=== PATIENT | male | born 1995 | race Caucasian/White ===

== ENCOUNTER → 2017-07-09 | Outpatient (CLI) | payer MEDICAID ==
[2017-07-09 11:47] LABS: ALT 41 U/L (21-72); AST 29 U/L (17-59); Albumin 4.5 g/dL (3.5-5.0); Alkaline Phosphatase 55 U/L (38-126); Anion Gap 11 mmol/L; Blood Urea Nitrogen 24 mg/dL (9-20); Calcium 10.1 mg/dL (8.4-10.2); Carbon Dioxide 28 mmol/L (22-30); Chloride 104 mmol/L (98-107); Cholesterol 167 mg/dL (<200); Glucose 89 mg/dL (74-99); HDL Cholesterol 57 mg/dL (40-60); LDL Cholesterol,Calculated 87 mg/dL (0-99); Potassium 4.3 mmol/L (3.5-5.1); Sodium 143 mmol/L (137-145); Total Bilirubin 0.7 mg/dL (0.2-1.3); Total Protein 7.4 g/dL (6.3-8.2); Triglycerides 115 mg/dL (<150)
[2017-07-09 12:01] LABS: Basophils % (A) 0 %; Eosinophils # (A) 0.1 k/uL (0-0.7); Eosinophils % (A) 1 %; HCT 50.4 % (39.0-53.0); HGB 16.9 gm/dL (13.0-17.5); Lymphocytes # (A) 1.7 k/uL (1.0-4.8); Lymphocytes % (A) 30 %; MCHC 33.4 g/dL (31.0-37.0); MCV 95.8 fL (80.0-100.0); Mean Platelet Volume 7.7; Monocytes # (A) 0.4 k/uL (0-1.0); Monocytes % (A) 7 %; Neutrophils # (A) 3.4 k/uL (1.3-7.7); Neutrophils % (A) 60 %; Platelet Count 191 k/uL (150-450); RBC 5.26 m/uL (4.30-5.90); RDW 12.1 % (11.5-15.5); WBC 5.7 k/uL (4.0-11.0)
== END | disposition home or self-care (01) ==
LOC: LABWHC1 10:57
PROVIDERS: ATTEND Pediatrics
DX: Z00.00 Encounter for general adult medical examination without abnormal findings (principal); Z13.220 Encounter for screening for lipoid disorders
CPT/HCPCS: 36415; 80053; 80061; 85025

== ENCOUNTER → 2019-07-08 | Outpatient (CLI) | payer MEDICAID ==
[2019-07-08 16:18] LABS: Basophils % (A) 1 %; Eosinophils # (A) 0.1 k/uL (0-0.7); Eosinophils % (A) 2 %; HCT 49.5 % (39.0-53.0); Lymphocytes % (A) 40 %; MCH 31.4 pg (25.0-35.0); MCHC 32.2 g/dL (31.0-37.0); MCV 97.5 fL (80.0-100.0); Mean Platelet Volume 7.8; Monocytes # (A) 0.3 k/uL (0-1.0); Monocytes % (A) 6 %; Neutrophils # (A) 2.5 k/uL (1.3-7.7); Neutrophils % (A) 50 %; Platelet Count 209 k/uL (150-450); RBC 5.08 m/uL (4.30-5.90); RDW 12.3 % (11.5-15.5); WBC 5.1 k/uL (3.8-10.6)
[2019-07-09 00:34] LABS: African American GFR (CKD) 123.3 (60.0-200.0); Albumin 4.7 g/dL (3.80-4.90); Albumin/Globulin Ratio 2.04 (1.60-3.17); Anion Gap 7.2 mmol/L (4.00-12.00); Calcium 9.8 mg/dL (8.7-10.3); Carbon Dioxide 28.8 mmol/L (21.6-31.8); Chol/HDL Ratio 3.67; Globulin 2.3 g/dL (1.6-3.3); LDL Cholesterol,Calculated 106.4 mg/dL (0.0-131.0); Non-African American GFR(CKD) 106.4 (60.0-200.0); Potassium 4.7 mmol/L (3.5-5.5); Total Bilirubin 0.8 mg/dL (0.3-1.2); VLDL Calculation 24.6 mg/dL (5.00-40.00)
== END | disposition home or self-care (01) ==
LOC: LABWHC1 15:23
PROVIDERS: ATTEND Pediatrics
DX: Z00.00 Encounter for general adult medical examination without abnormal findings (principal); Z13.220 Encounter for screening for lipoid disorders
CPT/HCPCS: 36415; 80053; 80061; 85025

== ENCOUNTER 2020-08-11 17:21 | Emergency (ER) | payer MEDICAID ==
--- NOTE | 2020-08-11 18:17 | ED ---
General Adult HPI - General Chief complaint: Psychiatric Symptoms Stated complaint: EPS eval Time Seen by Provider: 08/11/20 17:49 Source: patient Mode of arrival: ambulatory Limitations: no limitations - History of Present Illness Initial comments: Dictation was produced using [employer] dictation software. please excuse any grammatical, word or spelling errors. This patient was cared for during a federal and state declared state of emergency secondary to Covid 19 Chief Complaint: 25-year-old male past medical history of bipolar depression presents to the emergency department for suicidal behavior and thoughts History of Present Illness: Patient 25-year-old male who states he was diagnosed with bipolar depression several years ago. He states that over the last year he has been feeling suicidal. Patient has seen a psychiatrist in the past. Patient states that he wants to harm himself he doesn't have a specific plan. He has been cutting his left upper extremity. He presents to the emergency department voluntarily seeking help. He presents with his mother was at the bedside. Patient has no medical complaints. Patient has no medical complaints. Patient states his tetanus is up-to-date. The ROS documented in this emergency department record has been reviewed and confirmed by me. Those systems with pertinent positive or negative responses have been documented in the HPI. All other systems are other negative and/or noncontributory. PHYSICAL EXAM: General Impression: Alert and oriented x3, not in acute distress HEENT: Normocephalic atraumatic, extra-ocular movements intact, pupils equal and reactive to light bilaterally, mucous membranes moist. Cardiovascular: Heart regular rate and rhythm Chest: Able to complete full sentences, no retractions, no tachypnea Abdomen: abdomen soft, non-tender, non-distended, no organomegaly Musculoskeletal: Pulses present and equal in all extremities, no peripheral ed juan carlos Motor: no focal deficits noted Neurological: CN II-XII grossly intact, no focal motor or sensory deficits noted Skin: Multiple superficial abrasions to the right dorsum of the hand Psych: Normal affect and mood ED course: 25-year-old male presents with suicidal behavior and ideation. Vital signs upon arrival are within acceptable limits. medically cleared for EPS evaluation. Patient evaluated by EPS and given outpatient resources. Patient is agreeable plan patient will be discharged. - Related Data Home Medications Medication Instructions Recorded Confirmed FLUoxetine HCL [PROzac] 40 mg PO DAILY 08/11/20 08/11/20 OLANZapine [ZyPREXA] 7.5 mg PO HS 08/11/20 08/11/20 Pramipexole [Mirapex] 0.5 mg PO HS 08/11/20 08/11/20 Allergies Allergy/AdvReac Type Severity Reaction Status Date / Time No Known Allergies Allergy Verified 08/11/20 17:27 Review of Systems ROS Statement: Those systems with pertinent positive or pertinent negative responses have been documented in the HPI. ROS Other: All systems not noted in ROS Statement are negative. Past Medical History Past Medical History: No Reported History History of Any Multi-Drug Resistant Organisms: None Reported Past Surgical History: No Surgical Hx Reported Past Psychological History: Bipolar, Depression Smoking Status: Never smoker Past Alcohol Use History: Occasional Past Drug Use History: None Reported General Exam Limitations: no limitations Course Vital Signs 08/11/20 17:24 Temperature 97.9 F Pulse Rate 71 Respiratory 18 Rate Blood Pressure 126/78 O2 Sat by Pulse 98 Oximetry Disposition Clinical Impression: Suicidal ideation Disposition: HOME SELF-CARE Condition: Fair Instructions (If sedation given, give patient instructions): Help Prevent Suicide (ED) Is patient prescribed a controlled substance at d/c from ED?: No Referrals: Jean Claude Vo MD [Primary Care Provider] - 1-2 days Time of Disposition: 19:10
[2020-08-11 19:24] VITALS: BP 121/65; PULSE 65; RESP 20; TEMP 98.1
== END 2020-08-11 19:23 | disposition home or self-care (01) ==
LOC: EC 17:21
DX: R45.851 Suicidal ideations (principal); F31.9 Bipolar disorder, unspecified; Z79.899 Other long term (current) drug therapy
CPT/HCPCS: 82075; 99285

== ENCOUNTER 2023-11-26 20:05 | Inpatient (IN) | payer OTHER, MEDICAID ==
[2023-11-26 21:14] LABS: Amphetamine Screen,Urine Not Detected (NotDetected); Barbiturate Screen,Urine Not Detected (NotDetected); Benzodiazepines Screen,Urine Not Detected (NotDetected); Cocaine Screen,Urine Not Detected (NotDetected); Methadone Screen, Urine Not Detected (NotDetected); Opiate Screen,Urine Not Detected (NotDetected); Oxycodone Screen, Urine Not Detected (NotDetected); Phencyclidine Screen,Urine Not Detected (NotDetected); Tricyclic Antidepressant,Urine Not Detected (NotDetected); Urn Cannabinoid Scrn Not Detected (NotDetected)
--- NOTE | 2023-11-26 21:41 | ED ---
Psych HPI - General Chief Complaint: Psychiatric Symptoms Stated Complaint: mental health, L arm injury Time Seen by Provider: 11/26/23 20:12 Source: patient, RN notes reviewed Mode of arrival: ambulatory Limitations: no limitations - History of Present Illness Initial Comments: 28 year old male presents emerged part for complaints of depression, states ideation. He states he has been cutting his arm, burning his left arm. His tetanus is up-to-date. Patient does see a current counselor. Patient is here for psychiatric evaluation. - Related Data Home Medications Medication Instructions Recorded Confirmed FLUoxetine HCL [PROzac] 40 mg PO DAILY 08/11/20 08/11/20 OLANZapine [ZyPREXA] 7.5 mg PO HS 08/11/20 08/11/20 Pramipexole [Mirapex] 0.5 mg PO HS 08/11/20 08/11/20 Allergies Allergy/AdvReac Type Severity Reaction Status Date / Time No Known Allergies Allergy Verified 11/26/23 20:14 Review of Systems ROS Statement: Those systems with pertinent positive or pertinent negative responses have been documented in the HPI. ROS Other: All systems not noted in ROS Statement are negative. Past Medical History Past Medical History: No Reported History History of Any Multi-Drug Resistant Organisms: None Reported Past Surgical History: No Surgical Hx Reported Past Psychological History: Bipolar, Depression Smoking Status: Never smoker Past Alcohol Use History: Occasional Past Drug Use History: None Reported General Exam Limitations: no limitations General appearance: alert, in no apparent distress Head exam: Present: atraumatic, normocephalic, normal inspection Neck exam: Present: normal inspection, full ROM. Absent: tenderness, meningismus, lymphadenopathy Respiratory exam: Present: normal lung sounds bilaterally. Absent: respiratory distress, wheezes, rales, rhonchi, stridor Cardiovascular Exam: Present: regular rate, normal rhythm, normal heart sounds. Absent: systolic murmur, diastolic murmur, rubs, gallop, clicks Extremities exam: Present: other (Multiple circular wiggins left arm with abrasions noted) Psychiatric exam: Present: depressed Course Vital Signs 11/26/23 20:09 Temperature 98.2 F Pulse Rate 68 Respiratory 18 Rate Blood Pressure 157/85 O2 Sat by Pulse 99 Oximetry Medical Decision Making - Medical Decision Making Was pt. sent in by a medical professional or institution (, PA, TRAVEL ADMINISTRATOR, urgent care, hospital, or penitentiary...) When possible be specific @ -No Did you speak to anyone other than the patient for history (EMS, parent, family, police, friend...)? What history was obtained from this source @ -No Did you review nursing and triage notes (agree or disagree)? Why? @ -I reviewed and agree with nursing and triage notes Were old charts reviewed (outside hosp., previous admission, EMS record, old EKG, old radiological studies, urgent care reports/EKG's, penitentiary records)? Report findings @ -No old charts were reviewed Differential Diagnosis (chest pain, altered mental status, abdominal pain women, abdominal pain men, vaginal bleeding, weakness, fever, dyspnea, syncope, headache, dizziness, GI bleed, back pain, seizure, CVA, palpatations, mental health, musculoskeletal)? @ -Differential Mental Health Depression, anxiety, bipolar, psychosis, schizophrenia, borderline personality, situational depression, adjustment disorder, behavioral disorder, brain tumor, malingering, substance abuse, encephalopathy, medication reaction, dementia, hypothyroidism, degenerative neurologic disorder, lupus.... This is not meant to be all-inclusive list EKG interpreted by me (3pts min.). @ -None X-rays interpreted by me (1pt min.). @ -None done CT interpreted by me (1pt min.). @ -None done U/S interpreted by me (1pt. min.). @ -None done What testing was considered but not performed or refused? (CT, X-rays, U/S, labs)? Why? @ -None What meds were considered but not given or refused? Why? @ -None Did you discuss the management of the patient with other professionals (professionals i.e. , PA, TRAVEL ADMINISTRATOR, lab, RT, psych nurse, social sciences department chair, mitigation supervisor, teacher, information technology officer, comp field case manager)? Give summary @ -EPS evaluated patient recommend inpatient treatment Was smoking cessation discussed for >3mins.? @ -No Was critical care preformed (if so, how long)? @ -No Were there social determinants of health that impacted care today? How? (Homelessness, low income, unemployed, alcoholism, drug addiction, transportation, low edu. Level, literacy, decrease access to med. care, assisted, rehab)? @ -No Was there de-escalation of care discussed even if they declined (Discuss DNR or withdrawal of care, Hospice)? DNR status @ -No What co-morbidities impacted this encounter? (DM, HTN, Smoking, COPD, CAD, Cancer, CVA, ARF, Chemo, Hep., AIDS, mental health diagnosis, sleep apnea, morbid obesity)? @ -None Was patient admitted / discharged? Hospital course, mention meds given and route, prescriptions, significant lab abnormalities, going to OR and other pertinent info. @ -Admitted to 3 W. Undiagnosed new problem with uncertain prognosis? @ -No Drug Therapy requiring intensive monitoring for toxicity (Heparin, Nitro, Insulin, Cardizem)? @ -No Were any procedures done? @ -No Diagnosis/symptom? @ -Depression, suicide lesion, left arm wiggins Acute, or Chronic, or Acute on Chronic? @Acute Uncomplicated (without systemic symptoms) or Complicated (systemic symptoms)? @ -Complicated Side effects of treatment? @ -No Exacerbation, Progression, or Severe Exacerbation? @ -No Poses a threat to life or bodily function? How? (Chest pain, USA, LA, pneumonia, PE, COPD, DKA, ARF, appy, cholecystitis, CVA, Diverticulitis, Homicidal, Suicidal, threat to staff... and all critical care pts) @ -Yes suicidal - Lab Data Lab Results 11/26/23 Range/Units 20:50 Urine Opiates Screen Not Detected (NotDetected) Ur Oxycodone Screen Not Detected (NotDetected) Urine Methadone Screen Not Detected (NotDetected) Ur Barbiturates Screen Not Detected (NotDetected) U Tricyclic Antidepress Not Detected (NotDetected) Ur Phencyclidine Scrn Not Detected (NotDetected) Ur Amphetamines Screen Not Detected (NotDetected) U Methamphetamines Scrn Not Detected (NotDetected) U Benzodiazepines Scrn Not Detected (NotDetected) Urine Cocaine Screen Not Detected (NotDetected) U Marijuana (THC) Screen Not Detected (NotDetected) Disposition Clinical Impression: Suicidal ideation, Depression, Burn of left arm Disposition: TRANSFER TO PSYCH HOSP/UNIT Referrals: Jean Claude Vo MD [Primary Care Provider] - 1-2 days Time of Disposition: 21:41
[2023-11-26] MEDS ORDERED: haloperidoL 5 MG TAB PO PRN (22:49)
[2023-11-26] MEDS ORDERED: LORazepam 2 MG/ML INJ IM PRN (22:49)
[2023-11-26] MEDS ORDERED: HALOPERIDOL LACTATE 5 MG/ML 1 ML VIAL IM PRN (22:49)
[2023-11-26] MEDS ORDERED: MAG HYDROX/AL HYDROX/SIMETH 355 ML BOTTLE PO PRN (22:49)
[2023-11-26] MEDS ORDERED: LORazepam 1 MG TAB PO PRN (22:49)
[2023-11-26] MEDS ORDERED: MAGNESIUM HYDROXIDE 2,400 MG/30 ML CUP PO PRN (22:49)
[2023-11-26] MEDS ORDERED: ACETAMINOPHEN TAB 325 MG TAB PO PRN (22:49)
[2023-11-27] MEDS: traZODone HCL 50 MG TAB PO PRN (02:49)
[2023-11-27 08:01] LABS: Basophils % (A) 1 %; Eosinophils # (A) 0.1 k/uL (0-0.7); Eosinophils % (A) 1 %; HCT 48.1 % (39.0-53.0); Lymphocytes # (A) 1.9 k/uL (1.0-4.8); Lymphocytes % (A) 36 %; MCH 33.1 pg (25.0-35.0); MCHC 33.3 g/dL (31.0-37.0); MCV 99.3 fL (80.0-100.0); Mean Platelet Volume 7.6; Monocytes # (A) 0.3 k/uL (0-1.0); Monocytes % (A) 6 %; Neutrophils # (A) 2.8 k/uL (1.3-7.7); Neutrophils % (A) 55 %; Platelet Count 222 k/uL (150-450); RBC 4.84 m/uL (4.30-5.90); RDW 12.2 % (11.5-15.5); WBC 5.2 k/uL (3.8-10.6)
[2023-11-27 08:32] LABS: ALT 36 U/L (4-49); AST 39 U/L (17-59); African American GFR (CKD) >90 (>60 ml/min/1.73 sqM); Albumin 4.6 g/dL (3.5-5.0); Alkaline Phosphatase 51 U/L (38-126); Anion Gap 7 mmol/L; Blood Urea Nitrogen 22 mg/dL (9-20); Calcium 9.8 mg/dL (8.4-10.2); Carbon Dioxide 25 mmol/L (22-30); Chloride 109 mmol/L (98-107); Glucose 89 mg/dL (74-99); Non-African American GFR(CKD) >90 (>60 ml/min/1.73 sqM); Potassium 4.2 mmol/L (3.5-5.1); Sodium 141 mmol/L (137-145); Total Bilirubin 0.8 mg/dL (0.2-1.3); Total Protein 7.2 g/dL (6.3-8.2)
[2023-11-27 09:54] LABS: Appearance,Urine Clear (Clear); Bilirubin,Urine Negative (Negative); Blood,Urine Negative (Negative); Color,Urine Yellow; Glucose,Urine (UA) Negative (Negative); Ketones,Urine Negative (Negative); Leukocyte Esterase,Urine Negative (Negative); Nitrite,Urine Negative (Negative); Protein,Urine Trace (Negative); Specific Gravity,Urine 1.034 (1.001-1.035); Urobilinogen,Urine <2.0 mg/dL (<2.0)
--- NOTE | 2023-11-27 12:19 | P.HP ---
Psychiatric H&P - . H&P Date: 11/27/23 History & Physical: Allergies Allergy/AdvReac Type Severity Reaction Status Date / Time No Known Allergies Allergy Verified 11/26/23 20:14 Vital Signs Temp 97.6 F 11/27/23 06:13 Pulse 80 11/27/23 06:13 Resp 18 11/27/23 06:13 BP 106/58 11/27/23 06:13 Pulse Ox 98 11/27/23 06:13 FiO2 Intake & Output 11/26/23 11/27/23 11/27/23 18:59 06:59 18:59 Weight 90.2 kg Laboratory Last Values WBC 5.2 k/uL (3.8-10.6) 11/27/23 07:28 RBC 4.84 m/uL (4.30-5.90) 11/27/23 07:28 Hgb 16.0 gm/dL (13.0-17.5) 11/27/23 07:28 Hct 48.1 % (39.0-53.0) 11/27/23 07:28 MCV 99.3 fL (80.0-100.0) 11/27/23 07:28 MCH 33.1 pg (25.0-35.0) 11/27/23 07:28 MCHC 33.3 g/dL (31.0-37.0) 11/27/23 07:28 RDW 12.2 % (11.5-15.5) 11/27/23 07:28 Plt Count 222 k/uL (150-450) 11/27/23 07:28 MPV 7.6 11/27/23 07:28 Neutrophils % 55 % 11/27/23 07:28 Lymphocytes % 36 % 11/27/23 07:28 Monocytes % 6 % 11/27/23 07:28 Eosinophils % 1 % 11/27/23 07:28 Basophils % 1 % 11/27/23 07:28 Neutrophils # 2.8 k/uL (1.3-7.7) 11/27/23 07:28 Lymphocytes # 1.9 k/uL (1.0-4.8) 11/27/23 07:28 Monocytes # 0.3 k/uL (0-1.0) 11/27/23 07:28 Eosinophils # 0.1 k/uL (0-0.7) 11/27/23 07:28 Basophils # 0.0 k/uL (0-0.2) 11/27/23 07:28 Sodium 141 mmol/L (137-145) 11/27/23 07:28 Potassium 4.2 mmol/L (3.5-5.1) 11/27/23 07:28 Chloride 109 mmol/L (98-107) H 11/27/23 07:28 Carbon Dioxide 25 mmol/L (22-30) 11/27/23 07:28 Anion Gap 7 mmol/L 11/27/23 07:28 BUN 22 mg/dL (9-20) H 11/27/23 07:28 Creatinine 0.83 mg/dL (0.66-1.25) 11/27/23 07:28 Est GFR (CKD-EPI)AfAm >90 (>60 ml/min/1.73 sqM) 11/27/23 07:28 Est GFR (CKD-EPI)NonAf >90 (>60 ml/min/1.73 sqM) 11/27/23 07:28 Glucose 89 mg/dL (74-99) 11/27/23 07:28 Calcium 9.8 mg/dL (8.4-10.2) 11/27/23 07:28 Total Bilirubin 0.8 mg/dL (0.2-1.3) 11/27/23 07:28 AST 39 U/L (17-59) 11/27/23 07:28 ALT 36 U/L (4-49) 11/27/23 07:28 Alkaline Phosphatase 51 U/L (38-126) 11/27/23 07:28 Total Protein 7.2 g/dL (6.3-8.2) 11/27/23 07:28 Albumin 4.6 g/dL (3.5-5.0) 11/27/23 07:28 Urine Opiates Screen Not Detected (NotDetected) 11/26/23 20:50 Ur Oxycodone Screen Not Detected (NotDetected) 11/26/23 20:50 Urine Methadone Screen Not Detected (NotDetected) 11/26/23 20:50 Ur Barbiturates Screen Not Detected (NotDetected) 11/26/23 20:50 U Tricyclic Antidepress Not Detected (NotDetected) 11/26/23 20:50 Ur Phencyclidine Scrn Not Detected (NotDetected) 11/26/23 20:50 Ur Amphetamines Screen Not Detected (NotDetected) 11/26/23 20:50 U Methamphetamines Scrn Not Detected (NotDetected) 11/26/23 20:50 U Benzodiazepines Scrn Not Detected (NotDetected) 11/26/23 20:50 Urine Cocaine Screen Not Detected (NotDetected) 11/26/23 20:50 U Marijuana (THC) Screen Not Detected (NotDetected) 11/26/23 20:50 SARS-CoV-2 (PCR) Not Detected (Not Detectd) 11/26/23 21:45 11/27/23 09:01 IDENTIFYING DATA: Patient is a 28-year-old male, lives with parents in a house. Single, no children. 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 HPI: Patient presented to the hospital on 11/25. As per EPS note, "Pt brought self to ER d/t self harming behaviors and a fear he would continue to harm or kill himself. In triage he told the RN that he was having SI with a plan to shoot self. He stated that he has access to guns/weapons. He is currently living with his parents who are out of town. He came to the ER with his friend. Pt does have wiggins on his left forearm. Micheal Raman accessed and stated Silvadene can be ordered but otherwise no other care. Pt stated that he used matches and a muskrat trapper to burn himself. He also stated that he had a dull blade and attempted to cut himself. Superficial Scratches seen on left forearm. Pt is guarded, flat, vague, and seems to minimize. Pt is conflicted with his feelings. Pt could not express any real triggers to his increased depression. He states that he has been struggling with SI for a few years on and off. When discussing being suicide he couldn't give a solid answer. He did not disclose to RN at first what he told triage. He denies HI, hallucinations. He expresses some paranoia and believes that people are always talking about him or against him. Pt did state that he has been off his medication for a few months, he believes that when he was on Paxil and Topamax it was making him "crazy" and wanted to harm himself more. Pt is not goal or future oriented. Pt exhibits risky,impulsive behaviors. Pt denies the use of substances. He admits to social ETOH use." Upon todays interview, he states that yesterday was just a really bad day. He states that he realizes he has mood swings, and some sort of emotional disorder. He claims that there was no clear trigger, it was just an accumulation of all the small things building up. Stressors include, work related stress, and friendship problems. He reports severe mood swings. He is endorsing anxiety. He reports self harm. He states that he told the first nurse he spoke with yesterday that the thought of shooting himself crossed his mind, however, he does not have access to the guns in his home. He states his sleep is good, and his appetite is good. He states he stopped taking his medications a couple months ago, due to him thinking they were making him feel worse. He is resistive to treatment, minimizing his need for mental health treatment and medications. he is denying any hx of manic episodes. Patient denies any suicidal or homicidal ideations intent or plan. At this time patient denies any auditory or visual hallucinations. Patient denies any flight of ideas racing thoughts and increased in goal directed behavior. Patient UDS was negative. Patient states he is a social drinker. patient was fairly focused on discharge and not taking medications, has fairly poor insight and judgment. PAST PSYCHIATRIC HISTORY: Patient states that he does outpatient therapy through [facility]. He denies any previous hospitalizations for psychiatric treatment. He claims to have been diagnosed with depression. He has been off Prozac and Topamax for about 2 months. Patient denies any history of suicide attempts in the past. PMH:As per ER note ALLERGIES: as per EMR CHEMICAL DEPENDENCY HISTORY: as per HPI FAMILY PSYCHIATRIC/SUBSTANCE USE HISTORY: dad/depression SOCIAL HISTORY: Patient was born and raised in [place], [place]. He is single, no children. Lives with his parents. High school graduate, has gone to some college. Works as a [employer] tech. Denies legal issues. MENTAL STATUS EXAM: General Appearance: Patient appears to be stated age is alert, directable, and attempts to cooperate. Patient appears to have fair hygiene and grooming. Average build, wearing glasses. Has a lucero. Dressed casually. Behavior: Patient is seated without any agitated behavior. Resistive to treatment. Speech: Patient's speech is fluent and nonpressured. Mood/Affect: Patient reports their mood is up and down, and anxious, affect is congruent and constricted. Suicidality/Homicidality: Patient denies having any homicidal ideation intent or plan. Denies any suicidal ideations intent or plan Perceptions: Patient denies any visual hallucinations and denies any auditory hallucinations Though content/process: There is no evidence of any delusional thought content and thought process is linear, minimizing need for treatment. Memory and concentration: AOX3, grossly intact for the purposes of this session. Can spell "WORLD" backwards Judgment and insight: Poor STRENGTHS/WEAKNESSES: strength is that patient is resilient. Weakness is that patient has poor judgment and is impulsive INTELLECT: Average IMPRESSIONS: major depressive disorder, without psychotic features PLAN: -Patient is admitted under voluntary status to [facility]HU for stabilization of psychiatric symptoms and safety. Patient has signed adult voluntary form but not a medication consent and is placed in patient's chart. Patient stated he was going to sign an AMA, because he does not think he needs treatment. -Medications : Will start patient on Zoloft 50mg daily for mood/anxiety, Abilify 2.5mg daily for mood stabilization. trazodone 50 mg qhs prn for sleep -Ativan and Haldol PRN for agitation/aggression -Patient was informed of the risks, benefits and side effects of the medication and patient refused to taking the medications. did not sign med consent form. -Internal Medicine consult to perform medical evaluation and physical. -NRT -non smoker -SW on board for discharge planning. Encourage patient to participate in groups to work on coping skills. 11/27/23 11:55 11/27/23 12:18
[2023-11-27 15:49] LABS: Chol/HDL Ratio 3.43 Ratio; LDL Cholesterol,Calculated 96.8 mg/dL (0.0-131.0)
--- NOTE | 2023-11-27 19:18 | P.CONS ---
History of Present Illness - Reason for Consult Consult date: 11/27/23 Medical management Requesting physician: Wolf Baptiste - Chief Complaint Depressed - History of Present Illness This is a 28-year-old patient who follows with Dr. Ammon Vo. Has a history of depression but not taking his medications. Patient presented to the ER. He did use a shaker screen operator to burn on his left arm. Has been feeling rather low and depressed. Some decreased appetite. He lives with his parents. No or girlfriend currently. Is gainfully employed. Just feels Anthony the low. Was having suicidal ideations. Silvadene cream was placed in the ER. Review of systems: GEN.: Tired EYES: None HEENT: None NECK: None RESPIRATORY: None CARDIOVASCULAR: None GASTROINTESTINAL: None GENITOURINARY: None MUSCULOSKELETAL: None LYMPHATICS: None HEMATOLOGICAL: None PSYCHIATRY: [Depression NEUROLOGICAL: Some altered sleep Social history: Lives with his parents. Denies use of recreational drugs. Alcohol socially. 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 Conjunctiva shauna l. HEENT: External appearance of nose and ears normal, oral cavity grossly normal. NECK: JVD not raised; masses not palpable. HEART: First and second heart sounds are normal; no edema. LUNGS: Respiratory rate normal; clear to auscultation. ABDOMEN: Soft, nontender, liver spleen not palpable, no masses palpable. PSYCH: Alert and oriented x3; mood and affect a bit low l. MUSCULOSKELETAL:No Clubbing/cyanosis;muscles-grossly intact NEUROLOGICAL: Cranial nerves grossly intact; no facial asymmetry, power and sensation grossly intact. LYMPHATICS: No lymph nodes palpable in the axilla and neck EXTREMITY: Left forearm in a dressing INVESTIGATIONS, reviewed in the clinical context: November 27, 2023: White count 5.2 hemoglobin 16 platelets 222 potassium 4.2 creatinine 0.83 LDL 96.8 TSH 3.2 Urine drug screen: Negative Assessment and plan: -Left forearm self-inflicted burn. Silvadene was applied in the ER. Dressing in place. ID consulted. -Insomnia from underlying depression -Major depressive disorder without psychotic features Medications per psychiatry Care was discussed with patient. Patient counseled at length. About lifestyle changes. Thank you Past Medical History Past Medical History: No Reported History History of Any Multi-Drug Resistant Organisms: None Reported Past Surgical History: No Surgical Hx Reported Smoking Status: Never smoker - Past Family History Father Additional Family Medical History / Comment(s): Pt reports father dx of depr ession Medications and Allergies Home Medications Medication Instructions Recorded Confirmed Type FLUoxetine HCL [PROzac] 40 mg PO DAILY 08/11/20 11/27/23 History OLANZapine [ZyPREXA] 7.5 mg PO HS 08/11/20 11/27/23 History Pramipexole [Mirapex] 0.5 mg PO HS 08/11/20 11/27/23 History Allergies Allergy/AdvReac Type Severity Reaction Status Date / Time No Known Allergies Allergy Verified 11/26/23 20:14 Physical Exam Vitals: Vital Signs Temp Pulse Pulse Resp BP BP Pulse Ox 11/27/23 06:13 97.6 F 80 18 106/58 98 11/26/23 22:55 97.2 F L 64 18 139/77 99 11/26/23 22:49 71 18 148/76 98 11/26/23 20:09 98.2 F 68 18 157/85 99 Results CBC & Chem 7: 11/27/23 07:28 11/27/23 07:28 Labs: Abnormal Lab Results - Last 24 Hours (Table) 11/26/23 11/27/23 Range/Units 20:50 07:28 Chloride 109 H (98-107) mmol/L BUN 22 H (9-20) mg/dL Urine Protein Trace H (Negative)
[2023-11-28] MEDS: SERTRALINE 50 MG TAB PO SCH (08:54)
[2023-11-28] MEDS: ARIPiprazole 5 MG TAB PO SCH (08:54)
[2023-11-28] MEDS: IBUPROFEN 600 MG TAB PO PRN (08:55)
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
[2023-11-29 07:17] VITALS: RESP 16
--- NOTE | 2023-11-29 14:10 | P.PN ---
Progress Note - Text Progress Note Date: 11/29/23 Interval history: Patient was seen wandering the hallways and was directable and agreeable to speak with contract writer. He states that his been contemplating the reasons resulting in admission and agrees that frequent psychotherapy would prevent his escalation. He feels that he might have dissociated but after discussing this further, patient admits that it might have been anger himself that he was unable to express. He states that he felt numb while cutting himself and admits it did not help him. He states he felt overwhelmed but is now able to articulate more coping skills and methods of diffusing his frustration. He denies any intent to attempt suicide but states that it was a self-harm behavior. Patient is displaying better insight into his condition, has been tolerating the medications well. He reports that his mood is "good ". He denies any depression or anxiety. He is future oriented. He denies any overnight concerns and has been sleeping well. He endorses good appetite and no other concerns. Patient denies any self-harm behaviors recently and denies any thoughts of wanting to self-harm. At this time patient denies any suicidal or homicidal ideations intent or plan. Denies any Auditory or visual hallucinations. Patient denies any side effects from the medications and has been compliant with meds. Mental status exam: General Appearance: Patient appears to be stated age is alert, directable, and cooperative. Behavior: No agitated behavior. Patient is calm and directable Speech: Patient's speech is fluent and nonpressured. Mood/Affect: Mood is improving, affect is congruent and constricted. Suicidality/Homicidality: Patient denies having any suicidal or homicidal ideation intent or plan. Perceptions: Patient denies any auditory or visual hallucinations. Though content/process: There is no evidence of any delusional thought content and thought process is linear and goal-directed. Memory and concentration: AOX3, grossly intact for the purposes of this session Judgment and insight: improving Assessment/Plan: Continue with current diagnosis. Patient continues to meet criteria for inpatient psychiatric admission for symptom stabilization and safety. Patient will be maintained on current psychotropic medication regimen. Monitor for medication compliance and for any psychotropic medication side effects. Will continue to monitor ongoing response to treatment. Encouraged participation in milieu. Might consider for discharge tomorrow, pending clinical improvement. SW TO COORDINATE SAFEKEEPING/REMOVING ACCESS TO GUNS PRIOR TO DISCHARGE
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
--- NOTE | 2023-11-30 11:15 | P.PN ---
Progress Note - Text Progress Note Date: 11/30/23 Interval History: Patient was seen in his room, and was directable and agreeable to speak with medical writer in the office. He states that he feels better today, and is feeling more stable on the medications. He is going to all the groups, and participating in them. He is endorsing good sleep, and good appetite. He states the medications are making him feel better. At this time patient denies any suicidal or homicidal ideations, intent or plan. Patient denies any auditory, visual hallucinations and denies any paranoia or delusions. Patient denies any side effects from the medications and has been compliant with meds. MENTAL STATUS EXAM: General Appearance: Patient appears to be stated age is alert, directable, and attempts to cooperate. Patient appears to have fair hygiene and grooming. Average build, wearing glasses. Has a lucero. Dressed casually. Behavior: Patient is seated without any agitated behavior. Speech: Patient's speech is fluent and nonpressured. Mood/Affect: Patient reports their mood is more stable, affect is congruent and constricted. Improving Suicidality/Homicidality: Patient denies having any homicidal ideation intent or plan. Denies any suicidal ideations intent or plan Perceptions: Patient denies any visual hallucinations and denies any auditory hallucinations Though content/process: There is no evidence of any delusional thought content and thought process is linear, Memory and concentration: AOX3, grossly intact for the purposes of this session Judgment and insight: improving IMPRESSIONS: major depressive disorder, without psychotic features PLAN: -Patient is admitted under voluntary status to [facility] for stabilization of psychiatric symptoms and safety. Patient has signed adult voluntary form but not a medication consent and is placed in patient's chart. Patient rescinded his AMA, and has been proactive in his treatment. -Medications : Zoloft 50mg daily for mood/anxiety, Abilify 2.5mg daily for mood stabilization. trazodone 50 mg qhs prn for sleep -Ativan and Haldol PRN for agitation/aggression -NRT -non smoker -SW on board for discharge planning. Encourage patient to participate in groups to work on coping skills. Likely discharge tomorrow if patient is improving psychiatrically. SW to call and parents to ensure guns/weapons locked away and secured.
[2023-12-01 07:04] VITALS: BP 123/78; PULSE 59; TEMP 98.4
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
== END 2023-12-01 12:12 | disposition home or self-care (01) | DRG 881 ==
LOC: EC 20:05 → 3MHU 22:34
PROVIDERS: ADMIT Psychiatry & Neurology Psychiatry; ATTEND Psychiatry & Neurology Psychiatry
DX: F32.9 Major depressive disorder, single episode, unspecified (principal); T22.012A Burn of unspecified degree of left forearm, initial encounter; X76.XXXA Intentional self-harm by smoke, fire and flames, initial encounter; Z91.128 Patient's intentional underdosing of medication regimen for other reason; Z11.52 Encounter for screening for COVID-19; F22 Delusional disorders; F41.9 Anxiety disorder, unspecified; G47.00 Insomnia, unspecified; Z79.899 Other long term (current) drug therapy; Z81.8 Family history of other mental and behavioral disorders
CPT/HCPCS: 80053; 80061; 80306; 81003; 83036; 84443; 85025; 87635; 99285